=== PATIENT | female | born 1955 | race Caucasian/White ===

== ENCOUNTER 2018-06-20 01:39 | Day surgery (SDC) | payer OTHER ==
[~2018-06-20] VITALS: Ht 160 cm; Wt 51.3 kg
[~2018-06-20 01:39] MED LIST: CHOL10005 PO; CYAN500T54 PO; ESTR42.53 VA; PROG200C PO; TRIA15OI20 TP
[2018-06-20] MEDS ORDERED: ONDANSETRON 4 MG/2 ML VIAL ONE (05:20)
[2018-06-20] MEDS ORDERED: METOCLOPRAMIDE 10 MG/2 ML SDV ONE (05:20)
[2018-06-20] MEDS ORDERED: LIDOCAINE MPF 1% 5 ML VIAL ONE (05:20)
[2018-06-20] MEDS ORDERED: PROPOFOL EMUL(*) 10MG/ML 20 ML 20 ML ONE (05:20)
[2018-06-20] MEDS ORDERED: DEXAMETHASONE SOD 4 MG/ML VIAL ONE (05:21)
[2018-06-20] MEDS ORDERED: fentaNYL CITR 100 MCG/2 ML AMP ONE (05:43)
[2018-06-20] MEDS ORDERED: MIDAZOLAM 2 MG/2 ML VIAL IVP PRN (06:30)
[2018-06-20] MEDS ORDERED: NORMOSOL R SOLN(*) 1000 ML BAG 1,000 ML IV PRN (06:30)
[2018-06-20] MEDS ORDERED: LIDOCAINE/SOD BICARB 8.4% SYR ID ONE (06:30)
[2018-06-20] MEDS ORDERED: FAMOTIDINE 20 MG TAB PO ONE (06:30)
[2018-06-20 06:39] VITALS: BP 140/92
[2018-06-20 06:55] LABS: PLATELET COUNT, AUTOMATED 275 K/uL (150-450)
[2018-06-20] MEDS ORDERED: ROPIVACAINE 0.2% 20 ML VIAL ONE (06:55)
[2018-06-20] MEDS ORDERED: METHYLERGONOVINE MAL 0.2MG/ML ONE (06:55)
[2018-06-20] MEDS ORDERED: ESTROGENS CONJ VAG CREAM 30 GM TUBE PV ONE (09:06)
[2018-06-20] MEDS ORDERED: LR(*) 1000 ML BAG 1,000 ML IV ONE (09:21)
[2018-06-20] MEDS ORDERED: ESTR42.59 VG (09:31)
--- NOTE | 2018-06-20 09:34 | Short(Outpt) Discharge Summary ---
Discharge Summary Reason for Hosp/Final Diag: (1) Postmenopausal bleeding (2) Labial fusion Departure Discharge to: Home, Self Care Discharge Instructions Home Meds Reported Medications Triamcinolone Acetonide 0.1% Oint 15 Gm Tube (TRIAMCINOLONE ACETONIDE 0.1% 15 GM TUBE) 15 Gm Oint...g., 15 GM TP PRN, TUBE 06/13/18 Cholecalciferol (Vitamin D3) (VITAMIN D3) 1,000 Unit Tablet, 1000 UNIT PO 3XW, TAB 06/13/18 Cyanocobalamin (Vitamin B-12) (B-12) 500 Mcg Tablet, 500 MCG PO ONCE 06/13/18 Progesterone,Micronized (PROGESTERONE) 200 Mg Capsule, 200 MG PO DAILY, CAPSULE 06/13/18 Estradiol (Estradiol) 0.01 % Cream.appl, 1 MG VA DAILY 06/13/18 Follow up Referrals: MINIATURE SET DESIGNER - In Two Weeks @ [facility] with LORRAINE STEVEN MD Diet: Regular Activity: As Tolerated Copies to: LORRAINE STEVEN MD ; LORRAINE STEVEN MD Jun 20, 2018 09:34
--- NOTE | 2018-06-20 09:38 | Post Operative Note ---
Operative Note - CAGE FIGHTER Operative Day Date: Jun 20, 2018 Time: 09:37 Physicians Surgeon: Luis Anesthesia: Gen LMA Diagnosis Pre-Op Diagnosis: labial fusion postmenopausal bleeding Post-Op Diagnosis: same Procedure Procedure(s): christian of vulvar anatomy endometrial biopsy Specimen Removed:(Maybe N/A): endometrium Complications: none Fluids Fluids: IV cyrystalloid Estimated Blood Loss: minimal Dictated Date OP Note Dictated: Jun 20, 2018 Time OP Note Dictated: 09:38 Copies to: LORRAINE STEVEN MD ; LORRAINE STEVEN MD Jun 20, 2018 09:38
--- NOTE | 2018-06-20 10:12 | OPERATIVE REPORT 1 ---
EVENT DATE: June 20, 2018 SURGEON: John Smith MD ANESTHESIOLOGIST: Norris Scherer MD ANESTHESIA: General LMA. PREOPERATIVE DIAGNOSES 1. Labial fusion. 2. Postmenopausal bleeding. POSTOPERATIVE DIAGNOSES 1. Labial fusion. 2. Postmenopausal bleeding. PROCEDURES PERFORMED 1. Synagogue of vulvar anatomy with partial hymenectomy. 2. Endometrial biopsy. ESTIMATED BLOOD LOSS Minimal. FLUIDS IV crystalloid. FINDINGS The patient has complete fusion of the outer genitalia including labia majora to the contralateral side with a very small 1 cm opening at the posterior fourchette of the vagina. The clitoris, the urethra, anterior vagina and vaginal opening are not visible. PROCEDURE IN DETAIL The patient was brought to the operating room with working IV. She was placed in the dorsal supine position and placed under general LMA anesthesia and moved to the dorsal lithotomy position and prepped and draped in the usual sterile fashion. While the patient was anesthetized, the external labia was put on lateral tension starting near the introitus where there was an opening to peel open the vulva under blunt dissection. The same was followed along the clitoral germain. There was complete obliteration of the labia minora but I was able to restore the anatomy of the outer genitalia including the labia majora. The vaginal opening was then visible. I finished prepping the vagina with Betadine using sponge. A Mccray speculum was placed in the vagina, opening it to expose the cervix, which was grasped on the anterior lip with a single tooth tenaculum. An endometrial biopsy pipelle was then used to place under suction and curettage all four quadrants of the endometrial cavity. Specimen was collected and then sent to pathology. Upon completion, the entire genitalia and vagina was coated with Premarin cream. She was returned to the dorsal supine position, awakened from general anesthesia in stable condition and taken to recovery. CHARLEEN
[2018-06-20] MEDS ORDERED: KETOROLAC 15 MG/ML VIAL ONE (10:18)
[2018-06-20 10:35] VITALS: BP 102/62
[2018-06-20 11:10] VITALS: BP 117/76
[2018-06-20 11:12] VITALS: BP 104/84
== END 2018-06-20 10:35 | disposition home or self-care (01) ==
LOC: OR 01:39
PROVIDERS: ATTEND Obstetrics & Gynecology
DX: N95.0 Postmenopausal bleeding (principal); Q52.70 Unspecified congenital malformations of vulva
CPT/HCPCS: 36415; 56700; 85025; 88305; J1100; J1885; J2001; J2405; J2704; J2765; J2795; J3010; J2210